=== PATIENT | female | born 2000 | race Caucasian/White ===

== ENCOUNTER 2025-01-05 15:27 | Emergency (ER) | payer BC, MEDICAID, SELFPAY ==
[2025-01-05 15:32] VITALS: BP 117/67; PULSE 69; RESP 17; TEMP 36.6; O2SAT 95; BMI 35.8
--- NOTE | 2025-01-05 15:43 | W.ED.RECABL ---
HPI - Recheck/Abnormal Lab/Rx General: Chief Complaint: Recheck/Abnormal Lab/Rx Stated Complaint: rabies follow up Time Seen by Provider: 01/05/25 15:29 Source: patient Mode of arrival: ambulatory Limitations: no limitations History of Present Illness: Patient is a 24-year-old female to the ED for her day 3 rabies vaccination. She was bitten by a dog about 3 days ago on the lateral aspect of the right knee. She was seen at [facility] the day of the bite and rabies PEP was initiated on that day. She was discharged with Augmentin which she has been taking. She denies tenderness, excessive warmth, drainage, or foul odor from the wound. MD complaint: other (rabies vaccination) Initial visit (ago): day(s) (3) Initial visit for: animal bite (dog) Returns today for: rabies shot (day 3 ) Symptoms since prior visit: no new symptoms Associated symptoms: none Related Data Home Medications ?Medication ?Instructions ?Recorded ?Confirmed aripiprazole 10 mg tablet 10 mg PO DAILY 01/05/25 01/05/25 fluoxetine 40 mg capsule 40 mg PO DAILY 01/05/25 01/05/25 norethindrone acetate 1 mg-ethinyl 1 tab PO DAILY 01/05/25 01/05/25 estradiol 20 mcg tablet Allergies Allergy/AdvReac Type Severity Reaction Status Date / Time No Known Allergies Allergy Verified 01/05/25 15:35 Review of Systems Const: Denies: fever(s), chills or body aches Musc: Denies: extremity pain, extremity swelling, joint pain or joint swelling Skin/Breast: Denies: erythema, skin tenderness or skin swelling Neuro: Denies: sensory changes Physical Exam Const: COMMON NORMALS: no acute distress, patient oriented x3, no limitations and alert GENERAL APPEARANCE: cooperative and comfortable NUTRITIONAL APPEARANCE: obese Extremity: COMMON NORMALS: full ROM and no joint enlargement NARRATIVE EXTREMITY EXAM: bite to R lateral knee/upper leg; ecchymosis; no erythema/warmth/no streaking; no discharge GENERAL: No edema Neuro: COMMON NORMALS: patient oriented x3, moves all extremities, no focal motor deficits, no sensory deficits noted and gait normal SENSORIUM/ORIENTATION: Yes alert Skin: GENERAL SKIN EXAM: ecchymosis (yellow center with large blue/purple outer ring) TRAUMA: puncture (4 puncture wounds to R lateral knee) Course Vital Signs: Vital signs: Vital Signs Temperature 97.9 F 01/05/25 15:32 Pulse Rate 69 01/05/25 15:32 Respiratory Rate 17 01/05/25 15:32 Blood Pressure 117/67 01/05/25 15:32 Pulse Oximetry 95 01/05/25 15:32 Oxygen Delivery Me thod Room Air 01/05/25 15:32 MDM - Recheck/Abnormal Lab/Rx Medical Decision Making Patient presented to the ED for day 3 rabies vaccination. She has no new symptoms and is continuing antibiotic therapy with Augmentin. She has no concerns today. Based on patient's status, I feel it is sufficient to discharge this patient. Patient was provided a schedule for additional vaccinations on days 7 and 14 to be completed through our infusion center as she has stated she does not want to return to [facility]. No radiology studies performed this visit Discharge Plan Discharge Patient Disposition: Home Clinical Impression: Encounter for repeat administration of rabies vaccination Condition: Stable Prescriptions: No Action fluoxetine 40 mg capsule 40 mg PO DAILY norethindrone ac-eth estradiol 1-20 mg-mcg tablet 1 tab PO DAILY aripiprazole 10 mg tablet 10 mg PO DAILY Discharge Orders: Discharge ED (Routine); Ordered 01/05/25 Ordered By: Tomasa Lopez Activity Restrictions/Additional Instructions: You have been provided a schedule for the remainder of your rabies vaccinations. Continue your antibiotics as directed. Continue to monitor for signs of infection. 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
[2025-01-05] MEDS: rabies vaccine 2.5 unit SDV IM (16:02)
== END 2025-01-05 16:11 | disposition home or self-care (01) ==
PROVIDERS: Emergency Provider Physician Assistant
DX: Z29.14 Encounter for prophylactic rabies immune globulin (principal); Z20.3 Contact with and (suspected) exposure to rabies
CPT/HCPCS: 90471; 90675; 99283